=== PATIENT | female | born 1985 | race Caucasian/White ===

== ENCOUNTER 2017-06-05 11:10 | Inpatient (IN) | payer BC ==
[~2017-06-05] VITALS: Ht 157.5 cm; Wt 83.9 kg
[2017-06-05] VITALS (19 sets, daily range): BP systolic 105–134; BP diastolic 60–87
[~2017-06-05 11:10] MED LIST: ENDOCET 5-3251 EACH PO; IBUPROFEN800 MG PO; PRENATAL TABLE1 EAC3 PO
[2017-06-05] MEDS ORDERED: COLACE100 MG PO (11:29)
[2017-06-05 12:20] LABS: BASOPHIL (%) 0.3 % (0-1); EOSINOPHIL (%) 0.5 % (0-5); EOSINOPHIL COUNT 0.1 K/uL (0-0.3); HEMATOCRIT 32.1 % (36.0-46.0); HEMOGLOBIN 10.5 G/DL (11.9-15.5); IMMATURE GRANULOCYTE (%) 0.7 % (0.0-0.7); LYMPHOCYTE (%) 20.8 % (15-42); MCH 27.4 PG (29.0-34.0); MCHC 32.7 G/DL (30.0-36.0); MCV 83.8 FL (83-99); MONOCYTE (%) 5.6 % (3-12); MONOCYTE COUNT 0.5 K/uL (0-0.8); NEUTROPHIL (%) 72.1 % (45-76); NEUTROPHIL COUNT 6.9 K/uL (1.8-6.4); PLATELET COUNT 261 K/uL (156-360); RBC DIS.WIDTH-SD 42.6 % (39-53); RED BLOOD COUNT 3.83 M/uL (3.80-5.20); WHITE BLOOD COUNT 9.5 K/uL (4.1-10.2)
[2017-06-05] MEDS ORDERED: IBUPROFEN800 MG PO (19:38)
[2017-06-06 08:03] LABS: BASOPHIL (%) 0.5 % (0-1); BASOPHIL COUNT 0.1 K/uL (0-0.1); EOSINOPHIL (%) 0.3 % (0-5); HEMATOCRIT 33.6 % (36.0-46.0); HEMOGLOBIN 10.8 G/DL (11.9-15.5); IMMATURE GRANULOCYTE (%) 0.8 % (0.0-0.7); LYMPHOCYTE (%) 17.5 % (15-42); LYMPHOCYTE COUNT 2.2 K/uL (1.0-2.8); MCH 27.1 PG (29.0-34.0); MCHC 32.1 G/DL (30.0-36.0); MCV 84.4 FL (83-99); MONOCYTE COUNT 0.6 K/uL (0-0.8); NEUTROPHIL (%) 75.9 % (45-76); NEUTROPHIL COUNT 9.3 K/uL (1.8-6.4); PLATELET COUNT 263 K/uL (156-360); RBC DIS.WIDTH-CV 14.1 % (11.8-14.6); RBC DIS.WIDTH-SD 43.1 % (39-53); RED BLOOD COUNT 3.98 M/uL (3.80-5.20); WHITE BLOOD COUNT 12.3 K/uL (4.1-10.2)
[2017-06-06 10:39] VITALS: BP 97/56
[2017-06-06 23:12] VITALS: BP 120/71
== END 2017-06-07 17:35 | disposition home or self-care (01) | DRG 774 ==
LOC: LDRP-OP 11:10 → 2WEST 11:14 → LDRP-OP 08-22 15:34
PROVIDERS: Advanced Practice Midwife
PROC: 00HU33Z Insertion of Infusion Device into Spinal Canal, Percutaneous Approach (ICD-10-PCS; principal; 2017-06-05)
PROC: 10E0XZZ Delivery of Products of Conception, External Approach (ICD-10-PCS; principal; 2017-06-05)
PROC: 3E0R3BZ Introduction of Anesthetic Agent into Spinal Canal, Percutaneous Approach (ICD-10-PCS; principal; 2017-06-05)
PROC: 3E0R3GC Introduction of Other Therapeutic Substance into Spinal Canal, Percutaneous Approach (ICD-10-PCS; 2017-06-07)
DX: O42.92 Full-term premature rupture of membranes, unspecified as to length of time between rupture and onset of labor (principal); F41.9 Anxiety disorder, unspecified; O99.344 Other mental disorders complicating childbirth; Z37.0 Single live birth; Z3A.37 37 weeks gestation of pregnancy; Z87.891 Personal history of nicotine dependence; O74.5 Spinal and epidural anesthesia-induced headache during labor and delivery; G97.1 Other reaction to spinal and lumbar puncture; Y84.4 Aspiration of fluid as the cause of abnormal reaction of the patient, or of later complication, without mention of misadventure at the time of the procedure; Y92.238 Other place in hospital as the place of occurrence of the external cause
CPT/HCPCS: 85025; C1755; J0706; J3010; J7040; J7120; Q0169; S0020